=== PATIENT | female | born 1990 | race Caucasian/White ===

== ENCOUNTER → 2017-05-20 14:57 | Outpatient (CLI) | payer BC, OTHER, SELFPAY | PROVIDERS: Visit Provider Nurse Practitioner Obstetrics & Gynecology | DX: R00.0 Tachycardia, unspecified (principal); Z3A.36 36 weeks gestation of pregnancy | CPT/HCPCS: 86403; 93005 ==

== ENCOUNTER → 2017-06-04 17:08 | Outpatient (REF) | payer BC, OTHER, SELFPAY | LOC: LAB 17:08 | PROVIDERS: Visit Provider Nurse Practitioner Obstetrics & Gynecology | DX: Z34.90 Encounter for supervision of normal pregnancy, unspecified, unspecified trimester (principal) | CPT/HCPCS: 87086 ==

== ENCOUNTER 2017-06-08 21:05 | Outpatient (CLI) | payer BC, OTHER, SELFPAY ==
[2017-06-08 21:27] VITALS: BP 132/78; PULSE 118; RESP 18; TEMP 36.8; O2SAT 98; BMI 32.3
== END 2017-06-08 22:25 | disposition home or self-care (01) ==
LOC: OBOUT 21:07 → OB 21:09
PROVIDERS: Visit Provider Nurse Practitioner Obstetrics & Gynecology
DX: O26.893 Other specified pregnancy related conditions, third trimester (principal); Z3A.38 38 weeks gestation of pregnancy; W10.9XXA Fall (on) (from) unspecified stairs and steps, initial encounter
CPT/HCPCS: 59025

== ENCOUNTER 2017-06-16 04:53 | Inpatient (IN) | payer BC, OTHER, SELFPAY ==
[2017-06-16 05:06] VITALS: BMI 32.9
[2017-06-16 05:10] VITALS: BP 132/88; PULSE 84; RESP 18; TEMP 36.8; O2SAT 99; BMI 32.9
[2017-06-16 05:43] LABS: Basophils % 0.3 % (0.1-2.0); Eosinophils # 0.1 K/mm3 (0.0-0.4); Eosinophils % 1.6 % (0.1-12.0); Hematocrit 36.8 % (37.0-47.0); Lymphocytes # 1.9 K/mm3 (0.7-4.5); Lymphocytes % 22.2 K/mm3 (10-50); Mean Corpuscular HGB Conc 32.5 g/dL (31.8-35.4); Mean Corpuscular Hemoglobin 34.1 pg (27.0-31.2); Mean Corpuscular Volume 104.8 fl (81-99); Mean Platelet Volume 7.7 fl (7.4-10.4); Monocytes # 0.4 K/mm3 (0.1-1.0); Neutrophils # 6.1 K/mm3 (1.8-7.8); Platelet Count 295 K/mm3 (142-424); Red Blood Count 3.51 M/mm3 (4.20-5.40); Red Cell Distribution Width 14.8 % (11.5-17.5); White Blood Count 8.6 K/mm3 (4.8-10.8)
[2017-06-16 07:30] VITALS: BP 126/80; PULSE 71; RESP 18; TEMP 36.9
--- NOTE | 2017-06-16 08:26 | HMH.OBAPHP ---
OB - H&P: HPI Antepartum - History of Present Illness Chief complaint: contractions - History of Present Criteria for establishing EDC:: LMP confirmed by 1st trimester US care: good care Ultrasounds: normal 1st trimester US, normal mid trimester US Obstetrical complications: none Planning to breastfeed?: Yes H History I have reviewed the patient's past medical history: Yes Medical History: Reports:: Palpitations Denies:: Cancer, Diabetes Mellitus Type 1, Diabetes Mellitus Type 2, Internal Pacemaker, MRSA Other Surgeries: No: Pacemaker Amputation: No Fractures: No - *Social History Educational Level: Completed High School Smoking Status: Never smoker Alcohol Intake: never Alcohol Intake Frequency:: other Substance Use Type: denies use Occupational Status: employed - Psychiatric History Expresses thoughts of harming self/others: None Suicide Plan Description: No Plan *Family Hx:: No significant family history Para: 2 Meds Home Medications Medication Instructions Recorded Confirmed Type vit no.95-ferrous 1 tab PO DAILY 05/06/17 06/16/17 History fumarate 28 mg-folic acid 800 mcg tablet Bisoprolol Fumarate [Zebeta 5mg 2.5 mg PO QDAY 06/08/17 06/16/17 History tablet] Ferrous Sulfate [Ferrous Sulfate 325 mg PO DAILY 06/08/17 06/16/17 History 325mg Tablet] Allergies Allergy/AdvReac Type Severity Reaction Status Date / Time NO KNOWN ALLERGIES Allergy Unknown Unknown Uncoded 06/16/17 05:15 allergy reaction OB - H&P: Exam - Physical Exam Vital signs: Temp Pulse Resp BP Pulse Ox 98.5 F 71 18 126/80 99 06/16/17 07:30 06/16/17 07:30 06/16/17 07:30 06/16/17 07:30 06/16/17 05:10 - Constitutional no acute distress OB - Results - Labs Labs: Short CBC 06/16/17 Range/Units 05:30 WBC 8.6 (4.8-10.8) K/mm3 Hgb 12.0 L (12.2-16.2) g/dL Hct 36.8 L (37.0-47.0) % Plt Count 295 (142-424) K/mm3 OB - A/P Antepartum - Additional Plan Plan: expectant management Planning to breastfeed?: Yes
--- NOTE | 2017-06-16 08:27 | HMH.LABNOT ---
Labor Note - Subjective: Date: 06/16/17 Time: 08:27 regular contraction - Objective: NST:: Reactive Contractions:: every 2-3 minutes Cervical Dilation:: 4 Effacement:: 90% Station: -1 Membranes: articially ruptured - Fetus: Monitoring?: Yes monitoring type:: External - Assessment: Labor progressing?: Yes Cephalopelvic disproportion?: No Patient Problems: All Active Problems (Last Updated 05/28/17 @ 15:22 by Mary Carmen Cooper [facility]) (Acute) - Plan: Anesthesia for epidural?: Yes Continue to labor down?: Yes Plan for ?: No Continue to monitor?: Yes Start pushing?: No
--- NOTE | 2017-06-16 09:50 | P.PN_ITS ---
[facility] Anesthesia Checklist - Patient Identification Patient Identification: Arm Band, Verbal (Name & ) - Structural Data Admitted From: Home Planned Operative Procedure/s: labor epidural Consent for Planned Operative Procedure(s) Verified: Yes Verified Documents: Surgical Consent - NPO Status Verified Time NPO: 00:00 - Chart Verification Results Verified: CBC, BMP - Additional verifications Patient : Yes Anesthesia Reactions: No Hx Blood Transfusions: No Blood Transfusion Reaction: No Cephalosporin Allergy: No Previous Colonoscopy: No - Cardiovascular Assessment Heart Sounds: S1 & S2 Pulse Strength: Baseline Pulse Rhythm: Regular - Airway Assessment C-Spine Mobility Assessed: Yes TMJ Mobility Assessed: Yes Dentition: Good Dentition - Neurological Assessment Level of Consciousness: Awake, Alert, Appropriate Hx Seizures: No Numbness or tingling in extremities: No H Anesthesia HX I have reviewed the patient's past medical history: Yes Medical History: Reports:: Palpitations Denies:: Cancer, Diabetes Mellitus Type 1, Diabetes Mellitus Type 2, Internal Pacemaker, MRSA Other Surgeries: No: Pacemaker Amputation: No Fractures: No *Family Hx:: No significant family history
[2017-06-16 10:25] LABS: Appearance,Urine CLEAR (Clear); Bilirubin,Urine Negative (Negative); Blood, Urine Negative (Negative); Color,Urine YELLOW (Yellow); Glucose,Urine (UA) Negative (Negative); Ketones,Urine Negative (Negative); Leukocyte Esterase,Urine Negative (Negative); Microscopic, Urine URINE MICROSCOPIC (MICROSCOPIC); Nitrate,Urine Negative (Negative); PH,Urine 7.5 (5.0-8.5); Protein,Urine Negative (Negative); Urobilinogen,Urine 0.2 EU/dl (0.2)
[2017-06-16 10:42] LABS: Bacteria,Urine Trace /lpf; WBC,Urine Occasional #/hpf (0-3)
--- NOTE | 2017-06-16 10:43 | HMH.DN ---
- Delivery Note Delivery Date:: 06/16/17 Delivery Time:: 10:34 Anesthesia Type: Epidural Was labor medically induced?: No Infant delivered prior to 39 weeks?: No Justification for early elective delivery:: Active Labor Gender: Male at 1 minute: 8 at 5 minutes: 8 Delivery Procedure:: She is a 26-year-old 3 para 2 who is 40 weeks gestational age. She was having contractions and was found to be 4 cm dilated. As result of that we elected to rupture her membranes and augment her labor. She progressed under labor epidural to full dilation and delivered spontaneously a liveborn male child at 1034 and on the morning of June 16, 2017. On deliver the head the anterior shoulder then delivered followed by the rest of the 's body atraumatically. The oropharynx and nasopharynx were bulb suctioned. The baby cried spontaneously. We allowed the cord to continue to pulsate for approximately 1 minute. The cord was then doubly clamped and cut and the infant was placed on the mother's abdomen for further care. The nurses assigned Apgars of 8 at 1 minute and 8 at 5 minutes. We then obtained cord blood as well as cord pH. Using gentle traction on the cord and countertraction on the fundus I was able to easily deliver the placenta intact. He had a normal three-vessel cord. There were no perineal or vaginal lacerations. She has O+ blood, she is rubella immune and was group A streptococcus negative. She plans to breast-feed. Her identity management consultant is Dr. Meier. Estimated blood loss was 250 cc. Placental Delivery Description: Spontaneous
[2017-06-16 10:51] LABS: Cord Blood PH 7.28 (7.35-7.45)
[2017-06-16 15:44] VITALS: BP 107/56; PULSE 87; RESP 18; TEMP 36.9; O2SAT 97
[2017-06-16 20:00] VITALS: BP 117/58; PULSE 64; RESP 16; TEMP 36.7; O2SAT 99
[2017-06-17 06:50] LABS: Hematocrit 31.5 % (37.0-47.0); Hemoglobin 10.3 g/dL (12.2-16.2)
--- NOTE | 2017-06-17 07:59 | P.PN_ITS ---
Internal Medicine - PN: Subj *Date: 06/17/17 *Time: 07:58 Interval history: She is doing well this morning. She is eating and drinking and ambulating. She is bottlefeeding. Her lochia is normal. Exam Vital signs and Labs for Last 24 Hours: Temp Pulse Resp BP Pulse Ox 98.0 F 64 16 117/58 99 06/16/17 20:00 06/16/17 20:00 06/16/17 20:00 06/16/17 20:00 06/16/17 20:00 Laboratory Results - last 24 hr 06/16/17 05:30: Antibody Screen Positive 06/16/17 05:30: Antibody Identification Cold Antibody 06/16/17 10:00: Urine Color Yellow, Urine Appearance Clear, Urine pH 7.5, Ur Specific [place] 1.010, Urine Protein Negative, Urine Glucose (UA) Negative, Urine Ketones Negative, Urine Blood Negative, Urine Nitrate Negative, Urine Bilirubin Negative, Urine Urobilinogen 0.2, Ur Leukocyte Esterase Negative, Urine RBC None, Urine WBC Occasional, Ur Squamous Epith Cells None, Urine Bacteria Trace 06/16/17 10:45: Cord ABG pH 7.28 L 06/17/17 06:30: Hgb 10.3 L, Hct 31.5 L I & O for Last 24 hours: Intake & Output 06/14/17 06/15/17 06/16/17 06/17/17 10:59 11:59 11:59 11:59 Intake Total 2400 / 2400 Output Total 300 / 300 Balance 2100 / 2100 Weight 163 lb - Constitutional no acute distress Assessment and Plan - Assessment and plan all Dx Assessment and Plan for all problems:: She continues to do well. We will plan to send her home tomorrow.
[2017-06-17 08:00] VITALS: BP 121/76; PULSE 66; RESP 18; TEMP 36.3; O2SAT 99
[2017-06-17 20:20] VITALS: BP 123/73; PULSE 89; RESP 18; TEMP 36.7; O2SAT 97
--- NOTE | 2017-06-18 08:34 | HMH.DCSUM ---
General - General Admission date: 06/16/17 Discharge date: 06/18/17 HPI HPI: She is a 26-year-old 3 now para 3 who was 40 weeks gestational age. She came in having a few contractions and as result of that we elected to augment her labor. Hospital Course Hospital Course: She had her membranes ruptured and was augmented with oxytocin. She progressed under labor epidural to full dilation and delivered spontaneously a liveborn male child at 10:34 AM on the morning of June 16, 2017. The baby weighed 8 lbs. 2 oz. and was 20 inches long. He had Apgars of 8 at 1 minute and 8 at 5 minutes. She has done well and has remained afebrile throughout her hospitalization. She is eating and drinking and ambulating. She is bottlefeeding. Her lochia is normal. She has O+ blood, she is rubella immune and was group A streptococcus negative. She is discharged home to follow-up with me in 2 weeks time. Objective Vital signs: Temp Pulse Resp BP Pulse Ox 98.0 F 89 18 123/73 97 06/17/17 20:20 06/17/17 20:20 06/17/17 20:20 06/17/17 20:20 06/17/17 20:20 no acute distress DS: Diagnosis - Discharge Diagnosis (1) Normal delivery Status: Acute Discharge Plan - Patient Discharge Instructions ACTIVITY: No heavy lifting DIET: continue same diet - Follow up Plan Disposition: Home, Self-Senior Living Medications: Home Medications Medication Instructions Recorded Confirmed Type vit no.95-ferrous 1 tab PO DAILY 05/06/17 06/16/17 History fumarate 28 mg-folic acid 800 mcg tablet Bisoprolol Fumarate [Zebeta 5mg 2.5 mg PO DAILY 06/08/17 06/16/17 History tablet] Ferrous Sulfate [Ferrous Sulfate 325 mg PO DAILY 06/08/17 06/16/17 History 325mg Tablet] Prescriptions/Medication Reconciliation: Continue vit no.95-ferrous fumarate 28 mg-folic acid 800 mcg tablet 1 tab PO DAILY Ferrous Sulfate [Ferrous Sulfate 325mg Tablet] 325 mg PO DAILY Bisoprolol Fumarate [Zebeta 5mg tablet] 2.5 mg PO DAILY
== END 2017-06-18 10:39 | disposition home or self-care (01) | DRG 775 ==
PROVIDERS: Admitting Provider Nurse Practitioner Obstetrics & Gynecology; Family Provider Nurse Practitioner Obstetrics & Gynecology; Visit Provider Nurse Practitioner Obstetrics & Gynecology
DX: O80 Encounter for full-term uncomplicated delivery (principal); Z37.0 Single live birth; Z3A.40 40 weeks gestation of pregnancy
CPT/HCPCS: 59409; 36415; 59025; 81001; 82800; 85014; 85018; 85025; 86850; 86870; C1758; J0595

== ENCOUNTER → 2020-10-30 08:42 | Outpatient (CLI) | payer OTHER, SELFPAY ==
[2020-10-30 09:50] LABS: HCG,Quantitative 699 mIU/ml (0-5.42)
== END ==
PROVIDERS: Visit Provider Nurse Practitioner Obstetrics & Gynecology
DX: N92.6 Irregular menstruation, unspecified (principal)
CPT/HCPCS: 36415; 84702

== ENCOUNTER → 2020-11-16 12:38 | Outpatient (CLI) | payer OTHER, SELFPAY ==
[2020-11-16 13:24] LABS: Basophils % 0.6 % (0.1-2.0); Eosinophils % 1.2 % (0.1-12.0); Hematocrit 37.9 % (37.0-47.0); Hemoglobin 12.9 g/dL (12.2-16.2); Lymphocytes % 35.2 % (10-50); Mean Corpuscular HGB Conc 34.2 g/dL (31.8-35.4); Mean Corpuscular Hemoglobin 32.6 pg (27.0-31.2); Mean Corpuscular Volume 95.3 fl (81-99); Mean Platelet Volume 7.4 fl (7.4-10.4); Monocytes # 0.3 K/mm3 (0.1-1.0); Monocytes % 8.3 % (1.7-9.3); Neutrophils # 1.6 K/mm3 (1.8-7.8); Neutrophils % 54.7 % (37.0-80.0); Platelet Count 200 K/mm3 (142-424); Red Blood Count 3.97 M/mm3 (4.20-5.40); White Blood Count 2.9 K/mm3 (4.8-10.8)
[2020-11-17 09:25] LABS: HIV Screen 4th Generation wRfx Non Reactive (Non Reactive); HSV 2 IgG, Type Spec <0.91 index (0.00-0.90); Hepatitis B Surface Antigen Negative (Negative); Hepatitis C Antibody <0.1 s/co ratio (0.0-0.9)
[2020-11-17 11:14] LABS: Rapid Plasma Reagin Ab Titer Non Reactive (NonRea<1:1)
== END ==
PROVIDERS: Visit Provider Nurse Practitioner Obstetrics & Gynecology
DX: Z34.90 Encounter for supervision of normal pregnancy, unspecified, unspecified trimester (principal)
CPT/HCPCS: 36415; 85025; 86592; 86695; 86703; 86762; 86790; 86850; 87340; 87380; G0432

== ENCOUNTER → 2020-11-22 14:11 | Outpatient (CLI) | payer OTHER, SELFPAY ==
--- NOTE | 2020-11-22 14:17 | US_ITS ---
PROCEDURE: US OB <= 14 WEEKS FETUS CLINICAL INDICATION: for dates COMPARISON: No exams were available for comparison FINDINGS: An intrauterine gestational sac is present with a pole with a crown-rump length of 1.43cm correlating to gestational age of 7weeks 6days. heart tones are present with an FHR of 170bpm. Yolk sac is noted. IMPRESSION: Live IUP at 7 weeks 6 days Estimated due date by Ultrasound is 07/05/2021 Dictated by: Kenny Scherer MD 11/22/2020 16:52 Kenny Scherer MD in [facility] 11/22/2020 16:52
== END ==
PROVIDERS: Visit Provider Nurse Practitioner Obstetrics & Gynecology
DX: Z34.90 Encounter for supervision of normal pregnancy, unspecified, unspecified trimester (principal)
CPT/HCPCS: 76801

== ENCOUNTER → 2020-12-14 11:42 | Outpatient (CLI) | payer BC, OTHER, SELFPAY | PROVIDERS: Visit Provider Nurse Practitioner Obstetrics & Gynecology | DX: Z31.430 Encounter of female for testing for genetic disease carrier status for procreative management (principal); Z36.0 Encounter for antenatal screening for chromosomal anomalies; O28.3 Abnormal ultrasonic finding on antenatal screening of mother | CPT/HCPCS: 36415 ==

== ENCOUNTER → 2021-02-15 15:25 | Outpatient (CLI) | payer BC, OTHER, SELFPAY | PROVIDERS: Visit Provider Nurse Practitioner Obstetrics & Gynecology | DX: N39.0 Urinary tract infection, site not specified (principal) | CPT/HCPCS: 87086 ==

== ENCOUNTER → 2021-02-23 13:44 | Outpatient (CLI) | payer OTHER, SELFPAY ==
--- NOTE | 2021-02-23 13:46 | US_ITS ---
PROCEDURE: US OB >= 14 WEEKS FETUS CLINICAL INDICATION: 20 week gestation COMPARISON: US US OB <= 14 WEEKS FETUS from 11/22/2020 FINDINGS: There is a single live fetus present. Fetus is in cephalic position. Anencephaly is noted. The placenta is fundal in implantation and grade 1. Cervix is closed and measures 3 cm in length. Complete survey performed and was submitted images as in PACS. Active fetus. Three-vessel cord with satisfactory umbilical cord insertion. 4- chamber heart noted. Survey of brain & ventricles anencephaly. Face and neck survey unremarkable. Diaphragm and chest views unremarkable. Abdomen: Both kidneys noted and unremarkable. Stomach noted and satisfactory. Spine: Survey of the spine satisfactory with no anomalies identified nor imaged. Both arms and legs noted. Amniotic Fluid: Adequate. Maternal adnexa: No significant findings. Measurements: Average ultrasound age 20weeks 6days. Gestational Age 20weeks 6days Estimated due date by ultrasound age 0407/07/2021. Estimated weight BPD = OFD = HC = AC = 20weeks 1day FL = 21weeks 4days Heart Rate = 149bpm Cerebellum = Humerus = 20weeks 2days HC/AC is CI is FL/BPD is FL/AC is 0.24 IMPRESSION: Anencephalic . Live fetus is present in the cephalic presentation. Average ultrasound age is [address] Vazquez was notified of the above findings by the technologist Dictated by: Kenny Scherer MD 02/23/2021 18:05 Kenny Scherer MD in [facility] 02/23/2021 18:05
== END ==
PROVIDERS: PCP Nurse Practitioner Obstetrics & Gynecology; Visit Provider Nurse Practitioner Obstetrics & Gynecology
DX: Z36.0 Encounter for antenatal screening for chromosomal anomalies (principal)
CPT/HCPCS: 76805

== ENCOUNTER → 2022-09-18 11:01 | Outpatient (CLI) | payer OTHER, SELFPAY ==
[2022-09-18 13:24] LABS: HCG,Quantitative 315 mIU/ml (0-5.42)
[2022-09-19 07:28] LABS: Progesterone 18.1 ng/mL (.)
== END ==
PROVIDERS: Visit Provider Obstetrics & Gynecology
DX: Z34.92 Encounter for supervision of normal pregnancy, unspecified, second trimester (principal); Z3A.26 26 weeks gestation of pregnancy
CPT/HCPCS: 36415; 84144; 84702

== ENCOUNTER → 2022-10-16 10:30 | Outpatient (CLI) | payer OTHER, SELFPAY ==
[2022-10-16 10:49] LABS: Basophils % 0.4 % (0.1-2.0); Eosinophils # 0.1 K/mm3 (0.0-0.4); Eosinophils % 1.6 % (0.1-12.0); Hematocrit 40.1 % (37.0-47.0); Hemoglobin 13.7 g/dL (12.2-16.2); Lymphocytes # 1.4 K/mm3 (0.7-4.5); Mean Corpuscular HGB Conc 34.1 g/dL (31.8-35.4); Mean Corpuscular Hemoglobin 31.3 pg (27.0-31.2); Mean Corpuscular Volume 91.9 fl (81-99); Mean Platelet Volume 7.5 fl (7.4-10.4); Monocytes # 0.3 K/mm3 (0.1-1.0); Monocytes % 4.1 % (1.7-9.3); Neutrophils # 5.9 K/mm3 (1.8-7.8); Neutrophils % 75.8 % (37.0-80.0); Platelet Count 253 K/mm3 (142-424); Red Blood Count 4.37 M/mm3 (4.20-5.40); Red Cell Distribution Width 13.3 % (11.5-17.5); White Blood Count 7.8 K/mm3 (4.8-10.8)
[2022-10-17 06:02] LABS: HIV Screen 4th Generation wRfx Non Reactive (Non Reactive)
[2022-10-17 11:33] LABS: Rapid Plasma Reagin Ab Titer Non Reactive (NonRea<1:1)
[2022-11-20 08:58] LABS: Hepatitis B Surface Antigen Negative; Hepatitis C Antibody Non Reactive
[2022-11-20 08:59] LABS: Rubella Antibodies, IgG 6.59
== END ==
PROVIDERS: Visit Provider Nurse Practitioner Obstetrics & Gynecology
DX: Z34.91 Encounter for supervision of normal pregnancy, unspecified, first trimester (principal); Z3A.08 8 weeks gestation of pregnancy
CPT/HCPCS: 36415; 85025; 86593; 86703; 86762; 86850; 87086; 87340; 87380; G0432

== ENCOUNTER → 2022-10-24 12:43 | Outpatient (CLI) | payer OTHER, SELFPAY ==
--- NOTE | 2022-10-24 12:43 | US_ITS ---
PROCEDURE: US OB <= 14 WEEKS FETUS CLINICAL INDICATION: for dates COMPARISON: No exams were available for comparison FINDINGS: From her last menstrual period she is 9weeks 3days. An intrauterine gestational sac is present with a pole with a crown-rump length of 2.6cm correlating to gestational age of 9weeks 3days heart tones are present with an FHR of 170bpm. Yolk sac is noted. The yolk sac measures 5mm. There is trace fluid noted around the gestational sac. The right ovary is seen and appears normal. 2.4 cm x 2.1 cm x 2.4 cm. Several small follicles. The left ovary is seen and appears normal. 3.2 cm x 3.1 cm x 2.7 cm. Several small follicles. There is no fluid in the cul-de-sac. IMPRESSION: 1. Viable fetus with heart rate activity within the uterine cavity. 2. There is trace fluid around the gestational sac. 3. Fetus measures 9 weeks 3 days with a due date May 26, 2023. This corresponds with her last menstrual period. 4. Both ovaries are seen and appear normal. Dictated by: Vince Vazquez MD 10/25/2022 08:47 Vince Vazquez MD in [facility] 10/25/2022 08:47
== END ==
PROVIDERS: Visit Provider Nurse Practitioner Obstetrics & Gynecology
DX: Z34.91 Encounter for supervision of normal pregnancy, unspecified, first trimester (principal)
CPT/HCPCS: 76801

== ENCOUNTER 2022-11-11 06:05 | Emergency (ER) | payer OTHER, SELFPAY ==
[2022-11-11 06:06] VITALS: BP 143/91; PULSE 97; RESP 16; TEMP 37.1; O2SAT 98; BMI 22.6
[2022-11-11 06:21] LABS: Microscopic, Urine URINE MICROSCOPIC (MICROSCOPIC)
--- NOTE | 2022-11-11 06:22 | PC.NURSE ---
in room talking with patient at this time.
[2022-11-11 06:24] LABS: Appearance,Urine SL CLOUDY (Clear); Bilirubin,Urine Negative (Negative); Blood, Urine 3+ (Negative); Color,Urine YELLOW (Yellow); Glucose,Urine (UA) Negative (Negative); Ketones,Urine Negative (Negative); Leukocyte Esterase,Urine 2+ (Negative); Nitrate,Urine Negative (Negative); Protein,Urine Negative (Negative); Urobilinogen,Urine 0.2 EU/dl (0.2)
[2022-11-11 06:26] LABS: Urine Pregnancy, HCG Qual. Positive (Negative)
[2022-11-11 06:30] VITALS: BP 134/90; PULSE 80; O2SAT 98
--- NOTE | 2022-11-11 06:47 | HMH.EDGENADL ---
Discharge Plan Disposition Patient Disposition: Home, Self-Care Condition: Good Prescriptions Prescriptions: New nitrofurantoin monohyd/m-cryst [Macrobid] 100 mg capsule 100 mg PO BID 5 Days Qty: 10 0RF Rx Instructions: must administer with a meal/food No Action Gummies 400 mcg-35 mg- 25 mg-5 mg tablet,chewable PO azithromycin [Zithromax] 500 mg tablet 1,000 mg PO ONCE Qty: 2 0RF Referrals Follow up/Referrals: Provider,Referral, [Primary Care Provider] - See instructions Activity Restrictions/Add. Instructions Additional Instructions/Restrictions: You were evaluated in the emergency department today. Please call your OB this morning to arrange close follow-up. I encourage pelvic rest until you have been cleared by your OB. 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 Return to the emergency department for any new or worsening symptoms, such as severe pain, worsening of bleeding, or other concerns. Clinical Impressions Clinical Impression: Vaginal bleeding affecting early , UTI (urinary tract infection) Instructions Patient Instructions: DI for Vaginal Bleeding During , Early Bleeding, DI for Urinary Tract Infection (UTI) Discharge ED Provider: Danielle Hartman General Adult HPI General Chief complaint: Vaginal Bleeding Stated complaint: 11 weeks ; bleeding Time Seen by Provider: 11/11/22 06:19 Mode of Arrival: Ambulatory Source of Information: Patient Limitations: No Limitations Description of Symptoms (Recalled from ER Triage Doc. by RN): pt states was 11 week . woke up this morning and was a puddle of bright red blood, now she id just spotting. pt denies any abd pain or cramping History of Present Illness HPI narrative: This patient is a 32-year-old female who is G5, P3 at estimated 11 weeks gestation presenting to the emergency department for evaluation with concern for vaginal bleeding. Patient reports that she woke up with a spot of blood on the bed underneath her. She states that she is only having light spotting at this time. She denies any recent sexual intercourse or vaginal trauma. She denies any recent fevers, chills, abdominal pain, dysuria, polyuria, or other concerns. On medical record review, patient has already had her first visit and has had a transvaginal ultrasound confirming intrauterine . On previous lab record review, blood type is O+. Patient notes that her last resulted in at with a child with anencephaly. Related Data Home Medications Medication Instructions Recorded Confirmed PNV 153-FA 400 mcg-om3 35 mg-dha tab PO 11/16/20 10/16/22 25 mg-epa 5 mg-fish oil chew tablet ( Gummies) Previous Rx's Medication Instructions Recorded azithromycin 500 mg tablet 1,000 mg PO ONCE #2 tabs 10/17/22 (Zithromax) nitrofurantoin 100 mg PO BID 5 days #10 caps 11/11/22 monohydrate/macrocrystals 100 mg capsule (Macrobid) Allergies Allergy/AdvReac Type Severity Reaction Status Date / Time No Known Allergies Allergy Verified 10/16/22 09:40 [facility] Disclaimer: The information contained in this section may have been updated after the patient was seen, as this information can be updated by other users. Medical History Sinus tachycardia Surgical History S/P cholecystectomy Family History Brother Diabetes Mother Cancer Father Cancer Social History Smoking Status: Never smoker alcohol intake: never substance use type: denies use current occupational status: employed Travel in the last 8 weeks: None household members: family housing: house current occupation: [employer] current
--- NOTE | 2022-11-11 06:57 | PC.NURSE ---
Rounded on patient, no concerns voiced at this time.
[2022-11-11 07:01] LABS: Bacteria,Urine 2+ /lpf; Squamous Epithelial Cell,Urine 20-50 #/hpf (0-5)
--- NOTE | 2022-11-11 07:19 | US_ITS ---
PROCEDURE: US OB TRANSVAGINAL CLINICAL INDICATION: vaginal bleeding, 1st trimester COMPARISON: US US OB <= 14 WEEKS FETUS from 10/24/2022 FINDINGS: Transvaginal sonographic images of the pelvis were obtained. From her established due date she is 12weeks 0 days. An intrauterine gestational sac is present with a pole with a crown-rump length of 5.76cm correlating to gestational age of 12weeks 3days. There is a subchorionic hemorrhage measuring 2.6 cm x 0.5 cm. heart tones are present with an FHR of 161bpm. The right ovary is seen and appears normal. Right ovary measures 1.4 cm x 2.1 cm x 1.7 cm. The left ovary is seen and appears normal. Left ovary measures 2.2 cm x 2.7 cm x 2.0 cm. There is no fluid in the cul-de-sac. IMPRESSION: 1. Viable intrauterine gestation with good interval growth. 2. There are heart tones present. 3. There is a subchorionic hemorrhage measuring 2.6 cm x 0.5 cm. 4. Both ovaries are seen and appear normal. 5. There is no fluid in the cul-de-sac. Dictated by: Vince Vazquez MD 11/11/2022 09:07 Vince Vazquez MD in [facility] 11/11/2022 09:07
--- NOTE | 2022-11-11 07:30 | PC.NURSE ---
Rounded on pt and placed pt in gown in preparation for u/s and exam by MD. Pt stated her understanding.
[2022-11-11 07:51] LABS: Basophils % 0.5 % (0.1-2.0); Eosinophils # 0.2 K/mm3 (0.0-0.4); Eosinophils % 1.6 % (0.1-12.0); Hematocrit 40.7 % (37.0-47.0); Hemoglobin 13.2 g/dL (12.2-16.2); Lymphocytes # 1.5 K/mm3 (0.7-4.5); Lymphocytes % 16.2 % (10-50); Mean Corpuscular HGB Conc 32.4 g/dL (31.8-35.4); Mean Corpuscular Hemoglobin 31.5 pg (27.0-31.2); Mean Corpuscular Volume 97.1 fl (81-99); Mean Platelet Volume 7.7 fl (7.4-10.4); Monocytes # 0.4 K/mm3 (0.1-1.0); Monocytes % 4.3 % (1.7-9.3); Neutrophils # 7.3 K/mm3 (1.8-7.8); Neutrophils % 77.5 % (37.0-80.0); Platelet Count 252 K/mm3 (142-424); Red Blood Count 4.19 M/mm3 (4.20-5.40); Red Cell Distribution Width 13.6 % (11.5-17.5); White Blood Count 9.4 K/mm3 (4.8-10.8)
--- NOTE | 2022-11-11 07:57 | PC.NURSE ---
u/s tech here to take pt for OB u/s
--- NOTE | 2022-11-11 08:36 | PC.NURSE ---
pt back from US
[2022-11-11 09:26] VITALS: BP 123/85; PULSE 83; RESP 18; TEMP 36.8; O2SAT 99
== END 2022-11-11 09:27 | disposition home or self-care (01) ==
PROVIDERS: Emergency Medicine; Emergency Provider Emergency Medicine
DX: O41.8X10 Other specified disorders of amniotic fluid and membranes, first trimester, not applicable or unspecified (principal); O23.41 Unspecified infection of urinary tract in pregnancy, first trimester; Z3A.12 12 weeks gestation of pregnancy
CPT/HCPCS: 76817; 81001; 81025; 84702; 85025; 86850; 87086; 99284

== ENCOUNTER → 2023-01-15 09:37 | Outpatient (CLI) | payer OTHER, SELFPAY ==
--- NOTE | 2023-01-15 09:38 | US_ITS ---
PROCEDURE: US OB /MATERNAL DETAIL CLINICAL INDICATION: 20 week anatomy scan COMPARISON: US US OB TRANSVAGINAL from 11/11/2022 FINDINGS: Transabdominal sonographic images of the pelvis were obtained. From her established due date she is 21 weeks 2 days. Single viable intrauterine gestation. Initially breech then cephalic position. Placenta: Posteriorplacenta grade 1. There is an average amount of fluid. The cervix appears satisfactory. Closed and measuring 3.3 cm in length. Complete survey performed and was unremarkable on the submitted images as in PACS. No discrete anomalies identified on survey imaging by technologist. Active fetus. Three-vessel cord with satisfactory umbilical cord insertion. 4- chamber heart noted. [place], LVOT, RVOT, three-vessel view, aortic arch appear normal. Survey of brain & ventricles Unremarkable. Cerebellum, cisterna magna, thalamus, choroid plexus appear normal. Face and neck survey unremarkable. Lips and nose, nasion, profile appear normal. Diaphragm and chest views unremarkable. Abdomen: Both kidneys noted and unremarkable. Stomach and bladder noted and satisfactory. Spine: Survey of the spine satisfactory with no anomalies identified nor imaged. Upper, thoracic, lower spine appear normal. Both arms and legs noted. Amniotic Fluid: Adequate. Measurements: Average ultrasound age 21weeks 3days. Estimated due date by ultrasound age 0205/25/2023. Estimated weight 418g BPD = 21weeks 0 days HC = 21weeks 6days AC = 22weeks 0 days FL = 20weeks 4days Growth Percentile= 48 Heart Rate = 163bpm Cerebellum = 20weeks 6days Humerus = 21weeks 1day HC/AC is 1.15 FL/BPD is 0.68 FL/AC is 0.2 IMPRESSION: 1. Viable fetus in the cephalic presentation with a posterior placenta grade 1. 2. The fluid is within normal limits. 3. Anatomical scan appears normal. 4. Biometry is consistent with a dates. Dictated by: Vince Vazquez MD 01/15/2023 19:08 Vince Vazquez MD in [facility] 01/15/2023 19:08
== END ==
PROVIDERS: PCP Nurse Practitioner Obstetrics & Gynecology; Visit Provider Nurse Practitioner Obstetrics & Gynecology
DX: Z34.92 Encounter for supervision of normal pregnancy, unspecified, second trimester (principal); Z3A.20 20 weeks gestation of pregnancy
CPT/HCPCS: 76811

== ENCOUNTER → 2023-02-13 10:40 | Outpatient (CLI) | payer OTHER, SELFPAY ==
[2023-02-13 10:58] LABS: Basophils % 0.3 % (0.1-2.0); Eosinophils # 0.1 K/mm3 (0.0-0.4); Eosinophils % 1.2 % (0.1-12.0); Hematocrit 35.4 % (37.0-47.0); Hemoglobin 12.4 g/dL (12.2-16.2); Lymphocytes # 1.9 K/mm3 (0.7-4.5); Lymphocytes % 18.1 % (10-50); Mean Corpuscular HGB Conc 35.1 g/dL (31.8-35.4); Mean Corpuscular Hemoglobin 35.3 pg (27.0-31.2); Mean Corpuscular Volume 100.6 fl (81-99); Mean Platelet Volume 7.8 fl (7.4-10.4); Monocytes # 0.3 K/mm3 (0.1-1.0); Monocytes % 3.3 % (1.7-9.3); Neutrophils % 77.1 % (37.0-80.0); Platelet Count 298 K/mm3 (142-424); Red Blood Count 3.52 M/mm3 (4.20-5.40); Red Cell Distribution Width 14.5 % (11.5-17.5); White Blood Count 10.4 K/mm3 (4.8-10.8)
[2023-02-13 11:55] LABS: Glucose,Fasting 96 mg/dl (74-100)
[2023-02-13 13:07] LABS: Glucose 1 Hour 139 mg/dL (74-100)
== END ==
PROVIDERS: Visit Provider Nurse Practitioner Obstetrics & Gynecology
DX: Z34.92 Encounter for supervision of normal pregnancy, unspecified, second trimester (principal); Z3A.25 25 weeks gestation of pregnancy; O99.810 Abnormal glucose complicating pregnancy
CPT/HCPCS: 36415; 82951; 85025

== ENCOUNTER → 2023-02-14 08:31 | Outpatient (CLI) | payer OTHER, SELFPAY ==
[2023-02-14 11:21] LABS: Glucose 1 Hour 164 mg/dL (74-100)
[2023-02-14 11:48] LABS: Glucose,Fasting 107 mg/dl (74-100)
[2023-02-14 12:52] LABS: Glucose 2 Hour 136 mg/dL (74-100)
[2023-02-14 13:06] LABS: Glucose 3 Hour 108 mg/dL (74-100)
== END ==
PROVIDERS: Visit Provider Nurse Practitioner Obstetrics & Gynecology
DX: Z3A.23 23 weeks gestation of pregnancy (principal); Z34.92 Encounter for supervision of normal pregnancy, unspecified, second trimester
CPT/HCPCS: 36415; 82951

== ENCOUNTER 2023-04-10 12:48 | Outpatient (CLI) | payer OTHER, SELFPAY ==
--- NOTE | 2023-04-10 12:48 | US_ITS ---
PROCEDURE: US OB FOLLOW UP CLINICAL INDICATION: LGA COMPARISON: US US OB /MATERNAL DETAIL from 01/15/2023 FINDINGS: Transabdominal sonographic images of the pelvis were obtained. The following parameters are obtained: From her established due date she is 33weeks 3days Viable fetus in the cephalic presentation with a fundal placenta grade 2. The cervix measures 4.1 cm. heart rate: 156bpm bpm. BPD: 33weeks 6days HC: 33weeks 3days AC: 33weeks 3days FL: 33weeks 2days HC/AC: 1.02 FL/BPD: 0.77 FL/AC: 0.22 Growth percentile 39 Amniotic fluid index: 12.31cm, MVP 5.39 cm. No obvious anomalies evident. stomach, bladder, kidneys, three-vessel cord, four chamber heart appear normal. IMPRESSION: 1. Viable fetus in the cephalic presentation with a fundal placenta grade 2. 2. The fluid is within normal limits with an amniotic fluid index of 12.31 cm, MVP 5.39 cm. 3. Baby is active. 4. There has been good interval growth with the fetus currently 39th percentile. Dictated by: Vince Vazquez MD 04/10/2023 14:09 Vince Vazquez MD in [facility] 04/10/2023 14:09
== END 2023-04-10 23:59 ==
LOC: RAD 12:48
PROVIDERS: PCP Obstetrics & Gynecology; Visit Provider Obstetrics & Gynecology
DX: O36.63X0 Maternal care for excessive fetal growth, third trimester, not applicable or unspecified (principal); Z3A.33 33 weeks gestation of pregnancy
CPT/HCPCS: 76816

== ENCOUNTER 2023-04-30 14:25 | Outpatient (CLI) | payer OTHER, SELFPAY ==
[2023-04-30 14:48] LABS: Basophils % 0.2 % (0.1-2.0); Eosinophils # 0.1 K/mm3 (0.0-0.4); Eosinophils % 0.8 % (0.1-12.0); Hematocrit 33.4 % (37.0-47.0); Hemoglobin 11.3 g/dL (12.2-16.2); Lymphocytes # 1.3 K/mm3 (0.7-4.5); Lymphocytes % 17.3 % (10-50); Mean Corpuscular HGB Conc 33.7 g/dL (31.8-35.4); Mean Corpuscular Hemoglobin 32.7 pg (27.0-31.2); Mean Platelet Volume 7.9 fl (7.4-10.4); Monocytes # 0.4 K/mm3 (0.1-1.0); Monocytes % 5.2 % (1.7-9.3); Neutrophils # 5.5 K/mm3 (1.8-7.8); Neutrophils % 76.4 % (37.0-80.0); Platelet Count 249 K/mm3 (142-424); Red Blood Count 3.45 M/mm3 (4.20-5.40); Red Cell Distribution Width 13.5 % (11.5-17.5); White Blood Count 7.3 K/mm3 (4.8-10.8)
[2023-04-30 14:58] LABS: Activated Partial Thrombo Time 27.7 seconds (22.8-30.6); Fibrinogen 416 mg/dL (229.9-363.5); INR 0.93 (0.9-1.1); Prothrombin Time 10.1 seconds (10.1-12.5)
[2023-04-30 15:07] LABS: Chloride 106 mmol/L (98-107); Sodium 136 mmol/L (136-145)
[2023-04-30 15:08] LABS: Potassium 3.9 mmoL/L (3.5-5.1)
[2023-04-30 15:10] LABS: Blood Urea Nitrogen 5 mg/dl (7-17); Estimated Glomerular Filt Rate 117 ml/min (>60); GFR (African American) 141 ML/MIN (>60)
[2023-04-30 15:11] LABS: Alanine Aminotransferase 17 U/L (12-78); Anion Gap 11.9 mEq/L (5-15); Aspartate Amino Transferase 23 U/L (14-36); Calcium 8.7 mg/dl (8.4-10.2); Carbon Dioxide 22 mmol/L (22.0-30.0); Glucose 81 mg/dl (74-100)
[2023-04-30 18:49] LABS: Uric Acid 7.7 mg/dl (2.5-6.2)
== END 2023-04-30 23:59 ==
LOC: LAB 14:25
PROVIDERS: Visit Provider Nurse Practitioner Obstetrics & Gynecology
DX: O16.3 Unspecified maternal hypertension, third trimester (principal); Z3A.36 36 weeks gestation of pregnancy
CPT/HCPCS: 36415; 80048; 84450; 84460; 84550; 85025; 85384; 85610; 85730; 86403

== ENCOUNTER 2023-05-02 08:24 | Outpatient (CLI) | payer OTHER, SELFPAY ==
[2023-05-02 16:41] LABS: Total Protein 24 Hour,Urine 174 mg/24 hr (40-90); Total Volume,Urine 1025 mL (600-1600)
== END 2023-05-02 23:59 ==
LOC: LAB.DROPOF 08:25
PROVIDERS: Visit Provider Nurse Practitioner Obstetrics & Gynecology
DX: Z3A.36 36 weeks gestation of pregnancy; O16.3 Unspecified maternal hypertension, third trimester
CPT/HCPCS: 84155

== ENCOUNTER 2023-05-02 14:10 | Outpatient (CLI) | payer OTHER, SELFPAY ==
[2023-05-02 14:35] VITALS: BP 153/90; PULSE 66; RESP 18; TEMP 37.5; O2SAT 98
[2023-05-02 14:36] VITALS: BMI 54.1
[2023-05-02 14:50] VITALS: BP 151/76
[2023-05-02 14:50] LABS: Basophils % 0.4 % (0.1-2.0); Eosinophils # 0.1 K/mm3 (0.0-0.4); Eosinophils % 0.9 % (0.1-12.0); Hematocrit 34.3 % (37.0-47.0); Hemoglobin 11.5 g/dL (12.2-16.2); Lymphocytes # 1.4 K/mm3 (0.7-4.5); Lymphocytes % 17.7 % (10-50); Mean Corpuscular HGB Conc 33.7 g/dL (31.8-35.4); Mean Corpuscular Hemoglobin 32.8 pg (27.0-31.2); Mean Corpuscular Volume 97.5 fl (81-99); Mean Platelet Volume 8.8 fl (7.4-10.4); Monocytes # 0.5 K/mm3 (0.1-1.0); Monocytes % 5.7 % (1.7-9.3); Neutrophils # 5.9 K/mm3 (1.8-7.8); Neutrophils % 75.3 % (37.0-80.0); Platelet Count 263 K/mm3 (142-424); Red Blood Count 3.51 M/mm3 (4.20-5.40); Red Cell Distribution Width 13.4 % (11.5-17.5); White Blood Count 7.9 K/mm3 (4.8-10.8)
[2023-05-02 14:58] LABS: Chloride 109 mmol/L (98-107); Sodium 136 mmol/L (136-145)
[2023-05-02 14:59] LABS: Potassium 3.9 mmoL/L (3.5-5.1)
[2023-05-02 15:01] LABS: Alanine Aminotransferase 25 U/L (12-78); Alkaline Phosphatase 127 U/L (38-126); Aspartate Amino Transferase 30 U/L (14-36); Bilirubin,Total 0.4 mg/dl (0.2-1.3); Blood Urea Nitrogen 4 mg/dl (7-17); Carbon Dioxide 20 mmol/L (22.0-30.0); Creatinine Clearance Estimated 52 mL/min (50-200); Estimated Glomerular Filt Rate 144 ml/min (>60); GFR (African American) 174 ML/MIN (>60)
[2023-05-02 15:02] LABS: Albumin Level 3.5 g/dl (3.5-5.0); Albumin/Globulin Ratio 1.1 (1.1-1.8); Calcium 8.7 mg/dl (8.4-10.2); Globulin 3.1 g/dL (1.3-3.2); Glucose 114 mg/dl (74-100); Total Protein,Serum 6.6 g/dl (6.3-8.2)
[2023-05-02 15:05] VITALS: BP 120/88
[2023-05-02 15:05] LABS: Anion Gap 10.9 mEq/L (5-15)
[2023-05-02 15:12] VITALS: BMI 54.1
[2023-05-02 15:15] VITALS: BP 118/82
[2023-05-02 15:17] LABS: Uric Acid 7.8 mg/dl (2.5-6.2)
[2023-05-02 15:33] VITALS: BP 120/84
== END 2023-05-02 15:40 | disposition home or self-care (01) ==
LOC: OBOUT 14:12 → OB 14:14
PROVIDERS: Obstetrics & Gynecology; Visit Provider Obstetrics & Gynecology
DX: O26.893 Other specified pregnancy related conditions, third trimester (principal); Z3A.36 36 weeks gestation of pregnancy
CPT/HCPCS: 59025; 80053; 84550; 85025

== ENCOUNTER 2023-05-08 04:48 | Inpatient (IN) | payer OTHER, SELFPAY ==
[2023-05-08] VITALS (28 sets, daily range): BP systolic 124–192; BP diastolic 70–107; PULSE 73–117; RESP 17–19; TEMP 36.6–36.8; O2SAT 95–100; BMI 55.9
[2023-05-08 05:35] LABS: Microscopic, Urine URINE MICROSCOPIC (MICROSCOPIC)
[2023-05-08 05:41] LABS: Appearance,Urine CLEAR (Clear); Bilirubin,Urine Negative (Negative); Blood, Urine Negative (Negative); Color,Urine YELLOW (Yellow); Glucose,Urine (UA) Negative (Negative); Ketones,Urine Negative (Negative); Leukocyte Esterase,Urine Negative (Negative); Nitrate,Urine Negative (Negative); Protein,Urine 2+ (Negative); Specific Gravity, Urine >= 1.030 (1.005-1.030); Urobilinogen,Urine 0.2 EU/dl (0.2)
[2023-05-08 05:42] LABS: Basophils % 0.4 % (0.1-2.0); Eosinophils # 0.1 K/mm3 (0.0-0.4); Eosinophils % 1.4 % (0.1-12.0); Hematocrit 34.1 % (37.0-47.0); Hemoglobin 11.5 g/dL (12.2-16.2); Lymphocytes # 1.4 K/mm3 (0.7-4.5); Lymphocytes % 12.8 % (10-50); Mean Corpuscular HGB Conc 33.8 g/dL (31.8-35.4); Mean Corpuscular Volume 97.7 fl (81-99); Mean Platelet Volume 9.1 fl (7.4-10.4); Monocytes # 0.5 K/mm3 (0.1-1.0); Monocytes % 4.6 % (1.7-9.3); Neutrophils # 8.6 K/mm3 (1.8-7.8); Neutrophils % 80.8 % (37.0-80.0); Platelet Count 240 K/mm3 (142-424); Red Blood Count 3.49 M/mm3 (4.20-5.40); Red Cell Distribution Width 14.5 % (11.5-17.5); White Blood Count 10.6 K/mm3 (4.8-10.8)
[2023-05-08] MEDS: DEXTROSE 5%-LACTATED RINGERS 1,000 ML 125 ML IV ×2 (05:51→14:00)
[2023-05-08] MEDS: LACTATED RINGERS 1000ML 1,000 ML 500 ML IV ×2 (05:52→07:38)
[2023-05-08 05:53] LABS: Bacteria,Urine 1+ /lpf; Mucus,Urine Trace /lpf; Squamous Epithelial Cell,Urine Occasional #/hpf (0-5)
[2023-05-08 05:56] LABS: Amphetamine/Metha Screen,Urine Negative ng/ml (<1000)
[2023-05-08 05:57] LABS: Barbiturates Screen,Urine Negative ng/ml (<200)
[2023-05-08 05:58] LABS: Benzodiazepines Screen,Urine Negative ng/ml (<200); Cannabinoid Screen,Urine Negative ng/ml (<50)
[2023-05-08 05:59] LABS: Cocaine Screen,Urine Negative ng/ml (<300)
[2023-05-08] MEDS: OXYTOCIN/RINGERS LACTATE 30 UNITS/500 ML BAG IV (05:59)
[2023-05-08 06:00] LABS: Methadone Screen,Urine Negative ng/ml (<300); Opiate Screen,Urine Negative ng/ml (<300)
[2023-05-08 06:01] LABS: Phencyclidine Screen,Urine Negative ng/ml (<25)
[2023-05-08] MEDS: LABETALOL 5MG/ML 20ML MDV 20 MG IV (07:00)
[2023-05-08] MEDS: LABETALOL 5MG/ML 20ML MDV 40 MG IV (07:30)
[2023-05-08] MEDS: MAGNESIUM SULFATE IN WATER 4 GM/50 ML PIGGYBACK IV (07:38)
[2023-05-08] MEDS: MAGNESIUM SULFATE IN WATER 20 GM/500 ML IV.SOLN IV ×2 (07:38→19:15)
[2023-05-08 08:21] LABS: Fibrinogen 374 mg/dL (229.9-363.5)
[2023-05-08] MEDS: LABETALOL 5MG/ML 20ML MDV 80 MG IV (08:21)
[2023-05-08 08:22] LABS: Alanine Aminotransferase 23 U/L (12-78); Albumin Level 3.2 g/dl (3.5-5.0); Albumin/Globulin Ratio 1.1 (1.1-1.8); Alkaline Phosphatase 135 U/L (38-126); Anion Gap 9.1 mEq/L (5-15); Aspartate Amino Transferase 28 U/L (14-36); Bilirubin,Total 0.5 mg/dl (0.2-1.3); Blood Urea Nitrogen 9 mg/dl (7-17); Calcium 8.7 mg/dl (8.4-10.2); Carbon Dioxide 21 mmol/L (22.0-30.0); Chloride 108 mmol/L (98-107); Creatinine Clearance Estimated 52 mL/min (50-200); Estimated Glomerular Filt Rate 144 ml/min (>60); GFR (African American) 174 ML/MIN (>60); Globulin 2.8 g/dL (1.3-3.2); Glucose 110 mg/dl (74-100); Potassium 4.1 mmoL/L (3.5-5.1); Sodium 134 mmol/L (136-145); Uric Acid 7.4 mg/dl (2.5-6.2)
[2023-05-08 08:23] LABS: Activated Partial Thrombo Time 27.6 seconds (22.8-30.6); Prothrombin Time 9.8 seconds (10.1-12.5)
--- NOTE | 2023-05-08 09:34 | EXP.LABOR.NO ---
Labor Note Subjective: Date: 05/08/23 Time: 08:45 regular contraction Objective: NST:: Reactive Contractions:: every 2-3 minutes Cervical Dilation:: 2-3 Effacement:: 50% Station: -2 Membranes: artificially ruptured Fetus: Monitoring?: Yes monitoring type:: External Assessment: Labor progressing?: Yes Cephalopelvic disproportion?: No Plan: Anesthesia for epidural?: Yes Continue to labor down?: Yes Plan for ?: No Continue to monitor?: Yes Start pushing?: No Comment:: I ruptured membranes and there was clear fluid. Her blood pressure is elevated and she has received IV labetalol to 80 mg. Her blood pressure was in the 190s over 90s. She is also on magnesium sulfate. She is receiving IV oxytocin and we will expect a vaginal delivery.
--- NOTE | 2023-05-08 09:39 | P.HP_ITS ---
History of Present Illness *Admission Date: 05/08/23 *Reason for visit:: -induced hypertension *History of present illness: She is a 32-year-old 5 para 3 aborta 1 at 37 weeks gestational age. She has had increased blood pressure over the last week. She has a new partner for this baby. Blood work has been normal although her uric acid was elevated last week. As result of that she is admitted for induction of labor. O+ blood, rubella immune, GBS negative. [facility] Disclaimer: The information contained in this section may have been updated after the patient was seen, as this information can be updated by other users. 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 current occupational exposures/hazards: No Review of Systems Review of Systems Review of systems:: pertinent systems reviewed and negative unless documented below Meds Home Medications and Allergies Home Medications Medication Instructions Recorded Confirmed Type PNV 153-FA 400 mcg-om3 35 mg-dha 1 tab PO DAILY 11/16/20 05/08/23 History 25 mg-epa 5 mg-fish oil chew tablet ( Gummies) ferrous sulfate 325 mg (65 mg 325 mg PO DAILY #30 tabs 01/02/23 05/08/23 Rx iron) tablet labetalol 200 mg tablet 200 mg PO BID #60 tabs 04/30/23 05/08/23 Rx New Prescriptions to Start Prescriptions: Allergies Allergy/AdvReac Type Severity Reaction Status Date / Time No Known Allergies Allergy Verified 05/05/23 13:38 Exam Data for Last 24 hours Vital signs and Labs for Last 24 Hours: Temp Pulse Resp BP Pulse Ox O2 Del Method 98.2 F 89 19 190/95 H 100 Room Air 05/08/23 06:44 05/08/23 06:44 05/08/23 06:44 05/08/23 09:24 05/08/23 06:44 05/08/23 06:44 Laboratory Results - last 24 hr 05/08/23 05:25: WBC 10.6, RBC 3.49 L, Hgb 11.5 L, Hct 34.1 L, MCV 97.7, MCH 33.0 H, MCHC 33.8, RDW 14.5, Plt Count 240, MPV 9.1, Neut % (Auto) 80.8 H, Lymph % (Auto) 12.8, [place] % (Auto) 4.6, Eos % (Auto) 1.4, Baso % (Auto) 0.4, Neut # (Auto) 8.6 H, Lymph # (Auto) 1.4, [place] # (Auto) 0.5, Eos # (Auto) 0.1, Baso # (Auto) 0.0, Urine Color Yellow, Urine Appearance Clear, Urine pH 6.0, Ur Specific [place] >= 1.030, Urine Protein 2+, Urine Glucose (UA) Negative, Urine Ketones Negative, Urine Blood Negative, Urine Nitrate Negative, Urine Bilirubin Negative, Urine Urobilinogen 0.2, Ur Leukocyte Esterase Negative, Ur Squamous Epith Cells Occasional, Urine Bacteria 1+, Urine Mucus Trace, Urine Opiates Screen Negative, Urine Methadone Screen Negative, Ur Barbituates Screen Negative, Ur Phencyclidine Scrn Negative, Ur Amphetamines Screen Negative, U Benzodiazepines Scrn Negative, Urine Cocaine Screen Negative, U Marijuana (THC) Screen Negative, Blood Type O Positive, Antibody Screen Negative, Crossmatch (AHG) See Detail 05/08/23 07:55: PT 9.8 L, INR 0.90, APTT 27.6, Fibrinogen 374 H, Sodium 134 L, Potassium 4.1, Chloride 108 H, Carbon Dioxide 21 L, Anion Gap 9.1, BUN 9, Creatinine 0.50 L, Estimated Creat Clear 52, Estimated GFR 144, Est GFR ( Amer) 174, Glucose 110 H, Uric Acid 7.4 H, Calcium 8.7, Magnesium 3.0 H, Total Bilirubin 0.5, AST 28, ALT 23, Alkaline Phosphatase 135 H, Total Protein 6.0 L, Albumin 3.2 L, Globulin 2.8, Albumin/Globulin Ratio 1.1 I & O for Last 24 hours: Intake & Output 05/05/23 05/06/23 05/07/23 05/08/23 11:59 11:59 11:59 11:59 Weight 191 lb Constitutional Constitutional: no acute distress *Routine HEENT Exam Head: Present normocephalic Eye: Present EOMI and PERRL ENT: Present mucous membranes moist *Routine Neck Exam Neck: Present supple; Absent lymphadenopathy *Routine Respiratory Exam Respiratory: Present CTA bilaterally *Routine Cardiovascular Exam Cardiovascular: Present RRR *Routine Abdominal Exam Abdominal: Present soft and normoactive bowel sounds; Absent tenderness *Routine Rectal Exam Rectal:: deferred *Routine Genitalia Exam Genitalia:: deferred *Routine Extremities Exam Extremities: Absent cyanosis, clubbing or edema *Routine Skin Exam Skin: Present warm; Absent rash *Routine Neurological Exam Neurological: Present alert and oriented X3; Absent clonus Comments: Reflexes were brisk. Assessment and Plan *Assessment and plan (1) induced hypertension, antepartum: Status: Acute Category: Medical Code(s): O13.9 - Gestational [-induced] hypertension without significant proteinuria, unspecified trimester (2) Normal delivery: Status: Resolved Category: Medical Code(s): O80 - Encounter for full-term uncomplicated delivery; Z37.9 - Outcome of delivery, unspecified Plan She is admitted for induction of labor at term. She is on IV labetalol and IV magnesium sulfate for high blood pressure. Lab work is normal except for her uric acid which is elevated at 7.4. She has had 3 previous vaginal deliveries and we expect a repeat vaginal delivery.
[2023-05-08] MEDS: HYDRALAZINE 20MG/ML VIAL 10 MG IV (10:04)
[2023-05-08] MEDS: LACTATED RINGERS 1000ML 1,000 ML 999 ML IV (10:30)
--- NOTE | 2023-05-08 11:30 | P.PNANES_ITS ---
[facility] Disclaimer: The information contained in this section may have been updated after the patient was seen, as this information can be updated by other users. 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 current occupational exposures/hazards: No [facility] Anesthesia Checklist Patient Identification Patient Identification: Verbal (Name & ) Structural Data Admitted From: Inpatient Planned Operative Procedure/s: labor epidural Consent for Planned Operative Procedure(s) Verified: Yes Additional verifications Anesthesia Reactions: No Hx Blood Transfusions: No Blood Transfusion Reaction: No Airway Assessment Mallampati Score:: Class II C-Spine Mobility Assessed: Yes TMJ Mobility Assessed: Yes Dentition: Good Dentition Neurological Assessment Level of Consciousness: Awake, Alert and Appropriate Anesthesia Plan Anesthesia Risk discussed: Yes Anesthesia Plan: Verified ASA Class: III Anesthesia Type: Epidural
--- NOTE | 2023-05-08 11:34 | EXP.LABOR.NO ---
Labor Note Subjective: Date: 05/08/23 Time: 11:00 regular contraction Objective: NST:: Reactive Contractions:: every 2-3 minutes Cervical Dilation:: 5 Effacement:: 100% Station: -1 Membranes: artificially ruptured Fetus: Monitoring?: Yes monitoring type:: External Assessment: Labor progressing?: Yes Cephalopelvic disproportion?: No Plan: Anesthesia for epidural?: Yes Continue to labor down?: Yes Plan for ?: No Continue to monitor?: Yes Start pushing?: No Comment:: She is doing very well. We are awaiting an epidural. Nonstress test is reactive and her blood pressures seem to have stabilized.
[2023-05-08] MEDS: ACETAMINOPHEN 325MG TAB 650 MG PO (12:59)
[2023-05-08] MEDS: OXYTOCIN/RINGERS LACTATE 30 UNITS/500 ML BAG 999 UNITS IV (14:55)
[2023-05-08] MEDS: OXYTOCIN/RINGERS LACTATE 30 UNITS/500 ML BAG 40 UNITS IV (14:55)
--- NOTE | 2023-05-08 16:16 | P.PCN_ITS ---
Delivery Note Delivery Date:: 05/08/23 Delivery Time:: 14:54 Anesthesia Type: Epidural Was labor medically induced?: Yes Induction method: per pitocin protocol Gestational age (weeks): 38 delivered prior to 39 weeks?: Yes Justification for early elective delivery:: Pre-eclampsia Gender: Male at 1 minute: 7 at 5 minutes: 9 Delivery Procedure:: She is a 32-year-old 4 para 3 aborta 1 who is 37 and 3 weeks gestational age. She has increasing blood pressure and as result of that she was brought in for induction of labor. She was started on IV oxytocin had her membranes ruptured. Under labor epidural she progressed to full dilation. She delivered spontaneously a liveborn male child at 2:54 PM in the afternoon of May 08, 2023. On delivery the head the anterior shoulder came with the head and this was followed by the rest the infant's body atraumatically. The oropharynx and nasopharynx were bulb suction. We allowed the cord to continue to pulsate for approximately 30 seconds while we stimulated the child and the cord was then doubly clamped and cut. The was handed off to nurses who assigned Apgars of 7 at 1 minute and 9 at 5 minutes. We then obtained cord blood as well as cord pH. The pH is currently pending. She received IV oxytocin and using gentle traction on the cord and countertraction the fundus I was able to easily deliver the placenta intact. He had a normal three-vessel cord. There were no perineal or vaginal lacerations. She has O+ blood, she is rubella immune and was group B streptococcus negative. Her radar air traffic controller is Dr. Meier. Estimated blood loss was approximately 100 cc. Placental Delivery Description: Spontaneous
[2023-05-08] MEDS: IBUPROFEN 400 MG TABLET 800 MG PO ×2 (16:48→23:54)
[2023-05-08] MEDS: LABETALOL 100MG TABLET 300 MG PO (20:25)
[2023-05-08] MEDS: ACETAMINOPHEN 500MG TAB 1000 MG PO (20:25)
[2023-05-09] MEDS: LACTATED RINGERS 1000ML 1,000 ML 50 ML IV
[2023-05-09 04:04] VITALS: BP 118/67; PULSE 90; RESP 17; TEMP 36.6; O2SAT 98
[2023-05-09] MEDS: ACETAMINOPHEN 500MG TAB 1000 MG PO ×4 (04:07→20:19)
[2023-05-09] MEDS: LABETALOL 100MG TABLET 300 MG PO ×3 (04:07→20:18)
[2023-05-09] MEDS: MAGNESIUM SULFATE IN WATER 20 GM/500 ML IV.SOLN IV (04:26)
[2023-05-09] MEDS: SIMETHICONE 80MG CHEWABLE TABLET 160 MG PO (05:23)
[2023-05-09] MEDS: ALUMINUM/MAGNESIUM/SIMETHICONE 30ML UDC 30 ML PO ×2 (05:24→05:26)
[2023-05-09 06:06] LABS: Hematocrit 28.2 % (37.0-47.0)
[2023-05-09 06:17] LABS: Magnesium 6.2 mg/dl (1.6-2.3)
[2023-05-09 06:22] LABS: Hemoglobin 9.8 g/dL (12.2-16.2)
[2023-05-09 07:57] VITALS: BP 131/78; PULSE 88; RESP 17; TEMP 36.6; O2SAT 99
[2023-05-09 08:30] VITALS: BP 131/82; PULSE 89; RESP 16; TEMP 36.9; O2SAT 98
[2023-05-09] MEDS: IBUPROFEN 400 MG TABLET 800 MG PO ×3 (08:34→23:55)
[2023-05-09 12:00] VITALS: BP 132/80; PULSE 85; RESP 20; TEMP 36.6; O2SAT 99
--- NOTE | 2023-05-09 14:44 | EXP.ACUTE.PN ---
Subjective *Date: 05/09/23 *Time: 14:44 Interval history: PPD # 1 s/p Resting comfortably in bed. Lochia appropriate. Breast and formula feeding. Pain controlled. She is on mag sulfate for PIH with severe range blood pressures. Voiding without difficulty and passing flatus. Tolerating regular diet. Denies fever/chills, chest pain shortness of breath. No headaches, lightheadedness/dizziness. She has bilateral lower extremity swelling. Medical Exam Vital signs and Labs for Last 24 Hours: Vital Signs Temp Pulse Pulse Resp BP BP Pulse Ox 05/09/23 12:00 97.8 F 85 20 132/80 99 05/09/23 08:30 98.4 F 89 16 131/82 98 05/09/23 07:57 97.8 F 88 17 131/78 99 05/09/23 04:04 98 F 90 17 118/67 98 05/08/23 23:55 98 F 91 H 18 124/75 95 05/08/23 19:33 98.1 F 110 H 17 134/79 96 05/08/23 18:22 138/81 05/08/23 17:00 139/77 05/08/23 16:00 146/85 H 05/08/23 15:01 138/83 O2 Del Method 05/09/23 12:00 Room Air 05/09/23 08:30 Room Air 05/09/23 07:57 Room Air 05/09/23 04:04 Room Air 05/08/23 23:55 Room Air 05/08/23 19:33 Room Air 05/08/23 18:22 05/08/23 17:00 05/08/23 16:00 05/08/23 15:01 Intake and Output 05/08/23 05/09/23 05/09/23 23:59 07:59 15:59 Intake Total 120 / 120 Output Total 100 / 100 200 / 600 400 / 600 Balance -200 / -600 -400 / -600 Intake: Intake, Oral Amount 120 / 120 Output: Output, Urine Amount 100 / 100 200 / 600 400 / 600 Other: Number of Voids 1 1 Laboratory Results - last 24 hr 05/09/23 05:15: Hgb 9.8 L D, Hct 28.2 L, Magnesium 6.2 H D I & O for Labs for Last 24 Hours: Intake & Output 01/30/24 01/31/24 02/01/24 02/02/24 23:59 23:59 23:59 23:59 Intake Total 120 / 120 Output Total 100 / 100 600 / 600 Balance -600 / -600 Weight 191 lb Head: Present atraumatic and normocephalic ENT: Present mucous membranes moist Neck: Present full ROM Respiratory: Present CTA bilaterally and normal respiratory effort Cardiac: Present Reg Rate and Rhythm GI: Present soft; Absent distention or tenderness Comments:: Uterine fundus firm and below umbilicus Rectal (female): Present deferred (female): Present deferred Extremities: Present full ROM Neuro: Present alert, awake and moves all extremities Assessment and Plan *Assessment and plan (1) Status post normal vaginal delivery: Status: Acute Category: Medical (2) 37 weeks gestation of : Status: Acute Category: Medical Code(s): Z3A.37 - 37 weeks gestation of (3) induced hypertension, antepartum: Status: Acute Category: Medical Code(s): O13.9 - Gestational [-induced] hypertension without significant proteinuria, unspecified trimester (4) Acute blood loss anemia: Status: Acute Category: Medical Code(s): D62 - Acute posthemorrhagic anemia Plan Continue routine care Mag sulfate will be d/c'd 24 hours after delivery. Mag level was 6.2 Continue Labetalol 200 mg PO BID Plan d/c home PPD # 2 or PPD # 3
[2023-05-09] MEDS: PRENATAL MULTIVITAMIN W/IRON 1 EACH PO (17:06)
[2023-05-09 17:15] VITALS: BP 138/91; PULSE 90; RESP 18; TEMP 36.6; O2SAT 97
[2023-05-09 20:17] VITALS: BP 131/70; PULSE 102; RESP 17; TEMP 36.7; O2SAT 97
[2023-05-10] MEDS: LABETALOL 100MG TABLET 300 MG PO (04:10)
[2023-05-10] MEDS: ACETAMINOPHEN 500MG TAB 1000 MG PO ×2 (04:10→08:35)
[2023-05-10 04:20] VITALS: BP 145/86; PULSE 91; RESP 18; TEMP 36.8; O2SAT 98
[2023-05-10 08:33] VITALS: BP 143/90; PULSE 94; RESP 16; TEMP 36.8; O2SAT 97
[2023-05-10] MEDS: IBUPROFEN 400 MG TABLET 800 MG PO (08:35)
--- NOTE | 2023-05-10 12:03 | P.DS_ITS ---
General Admission date:: 05/08/23 Discharge date: 05/10/23 HPI HPI HPI: PPD # 2 s/p She is feeling well. Pain controlled. She is formula feeding. Light lochia. Voiding without difficulty and passing flatus. Tolerating regular diet. Denies fever/chills, chest pain and shortness of breath. No headaches, vision changes, lightheadedness/dizziness. Admits to lower extremity swelling that is improving. No calf pain. Ambulating well ad surekha Hospital Course Hospital Course Hospital Course: Ms Rica Blakely is a 32-year-old 5 para 3 aborta 1 at 37 weeks gestational age. She had increased blood pressure over the past week. She was started on Labetalol 200 mg PO BID. She has a new partner for this baby. Blood work has been normal although her uric acid was elevated last week. As result of that she was admitted for induction of labor for GHTN. Induction of labor performed with Pitocin. Blood pressure was severe range during induction. She received IV Labetalol 20, 40, 80 mg and Hydralazine 10 mg. She was started on mag sulfate which was continued until 24 hours after delivery and Labetalol increased to 300 mg PO TID. Mag level reached therapeutic level, 6.2. She had a normal spontaneous vaginal delivery on 05/08/23 at 1454. She delivered a live male baby, Jacky, weighing 6 lb 10 oz. APGARs 7 (1 min), 9 (5 min). EBL 100 mL. She did well . Pain controlled. She is formula feeding. Light lochia. Voiding without difficulty and passing flatus. Tolerating regular diet. Denies fever/chills, chest pain and shortness of breath. No headaches, vision changes, lightheadedness/dizziness. Admits to lower extremity swelling that is improving. No calf pain. Vital signs stable, afebrile. Heart regular rate and rhythm. Lungs clear to auscultation. Abdomen soft, nontender. She had +2 bilateral lower extremity edema. No calf tenderness to palpation. Ambulating well ad surekha. She wa s discharged home on PPD # 2 with instructions to follow-up with Dr. Vazquez on 05/15 or sooner if needed. Exam Data for Last 24 hours Vital signs and Labs for Last 24 Hours: Temp Pulse Resp BP Pulse Ox O2 Del Method 98.3 F 94 H 16 143/90 H 97 Room Air 05/10/23 08:33 05/10/23 08:33 05/10/23 08:33 05/10/23 08:33 05/10/23 08:33 05/10/23 08:33 I & O for Last 24 hours: Intake & Output 05/07/23 05/08/23 05/09/23 05/10/23 23:59 23:59 23:59 23:59 Intake Total 120 / 120 2257 / 2257 Output Total 100 / 100 1600 / 1600 Balance 657 / 657 Weight 191 lb Constitutional Constitutional: no acute distress and cooperative *Routine HEENT Exam Head: Present normocephalic and atraumatic Eye: Absent conjunctivae pink ENT: Present mucous membranes moist *Routine Neck Exam Neck: Present full ROM *Routine Respiratory Exam Respiratory: Present CTA bilaterally and normal respiratory effort *Routine Cardiovascular Exam Cardiovascular: Present RRR *Routine Abdominal Exam Abdominal: Present soft; Absent tenderness or distended Comments: Uterine fundus firm and below umbilicus *Routine Rectal Exam Patient deferred: visual exam *Routine Exam Patient deferred: external exam *Routine Extremities Exam Extremities: Present edema (+2 bilateral lower extremity edema) and full ROM; Absent calf tenderness *Routine Neurological Exam Neurological: Present alert, moving all extremities and normal speech Routine Psychiatric Exam Psychiatric: Present normal affect and cooperative DS: Diagnosis Discharge Diagnosis (1) Status post normal vaginal delivery: Status: Acute (2) 37 weeks gestation of : Status: Acute Code(s): Z3A.37 - 37 weeks gestation of (3) induced hypertension, antepartum: Status: Acute Code(s): O13.9 - Gestational [-induced] hypertension without significant proteinuria, unspecified trimester (4) Acute blood loss anemia: Status: Acute Code(s): D62 - Acute posthemorrhagic anemia Meds Home Medications and Allergies Home Medications Medication Instructions Recorded Confirmed Type PNV 153-FA 400 mcg-om3 35 mg-dha 1 tab PO DAILY 11/16/20 05/08/23 History 25 mg-epa 5 mg-fish oil chew tablet ( Gummies) ferrous sulfate 325 mg (65 mg 325 mg PO DAILY #30 tabs 01/02/23 05/08/23 Rx iron) tablet labetalol 100 mg tablet 300 mg PO Q8 #120 tabs 05/10/23 Rx New Prescriptions to Start Prescriptions: labetalol Rosa Isela Reed Allergies Allergy/AdvReac Type Severity Reaction Status Date / Time No Known Allergies Allergy Verified 05/05/23 13:38 Discharge Plan Disposition Patient Disposition: Home, Self-Care Condition: Good Discharge Order Discharge Orders: Discharge Order (Routine); Ordered 05/10/23 Ordered By: Rosa Isela Reed Follow up Plan Follow up with: Vince Vazquez MD [Staff Physician] - 05/15/23 2:15 pm Prescriptions/Medication Reconciliation: New labetalol 100 mg Tablet 300 mg PO Q8 Qty: 120 0RF Continued ferrous sulfate 325 mg (65 mg iron) tablet 325 mg PO DAILY Qty: 30 8RF Gummies 400 mcg-35 mg- 25 mg-5 mg tablet,chewable 1 tab PO DAILY Discontinued labetalol 200 mg tablet 200 mg PO BID Qty: 60 2RF Problem Reconciliation Problems Reviewed?: Yes Patient Discharge Instructions ACTIVITY: Limited activity DIET: continue same diet and regular diet Additional Instructions: Discharge: 1. Take 800 mg Ibuprofen every 8 hours as needed for pain. You can also take 500-1000 mg of Tylenol in between doses, every 6-8 hours. 2. Nothing in the vagina for 6 weeks - no intercourse, douching or tampons. No tub baths/hot tubs or swimming pools 3. Reasons to return to L&D or call On-Call doctor - fever (greater than 100.4) - heavy vaginal bleeding (soaking through 1 pad in less than 2 hours) - vaginal discharge (malodorous and/or purulent) - severe headaches not resolved by medication or rest and leg tenderness/edema 4. depression/blues - Normal to feel anxious/overwhelmed for first 2 weeks - Talk to your doctor if: severe anxiety, trouble bonding with baby, withdrawing from other family members, thoughts of harming yourself or others Rosa Isela Reed DO [facility] [phone] Patient Instructions: Depression, Hemorrhage, DI for Labor and Delivery, Vaginal , DI for Pre-eclampsia, [facility] Post Dischar ge Instructions Providers Primary Care Provider: Provider,Referral Admit Provider: Vince Vazquez Attending Provider: Vince Vazquez
== END 2023-05-10 13:00 | disposition home or self-care (01) | DRG 806 ==
PROVIDERS: Admitting Provider Nurse Practitioner Obstetrics & Gynecology; Visit Provider Nurse Practitioner Obstetrics & Gynecology
DX: O13.4 Gestational [pregnancy-induced] hypertension without significant proteinuria, complicating childbirth (principal); D62 Acute posthemorrhagic anemia; Z37.0 Single live birth; Z3A.37 37 weeks gestation of pregnancy; O90.81 Anemia of the puerperium
CPT/HCPCS: 59409; 59025; 80053; 80307; 81001; 82800; 83735; 84550; 85014; 85018; 85025; 85384; 85610; 85730; 86850; 94761; G0283